=== PATIENT | female | born 1975 ===

== ENCOUNTER 2022-02-06 06:24 | Day surgery (SDC) | payer OTHER | END 2022-02-06 10:40 | disposition home or self-care (01) | LOC: AMB-ENDOS 06:24 | PROVIDERS: ATTEND Surgery | DX: K29.50 Unspecified chronic gastritis without bleeding (principal); Z20.822 Contact with and (suspected) exposure to COVID-19; K44.9 Diaphragmatic hernia without obstruction or gangrene; I10 Essential (primary) hypertension; K21.9 Gastro-esophageal reflux disease without esophagitis ==